=== PATIENT | female | born 1945 | race Caucasian/White ===

== ENCOUNTER 2017-04-12 16:51 | Emergency (ER) | payer OTHER ==
--- NOTE | 2017-04-12 17:14 | PDOC ---
History of Present Illness - General History Source: Patient Exam Limitations: No Limitations - History of Present Illness Initial Comments: 04/12/17 18:12 The patient is a 71 year old female, with significant past medical history diabetes, diabetic neuropathy, stroke with left sided residual hemiparesis, HTN , left bundle branch block, who presents today complaining of right foot cellulitis starting Sunday. The patient reports that her 100 lb rottweiler jumped on her right foot 2 weeks ago. She thought her 4th toe was broken and visited the orthopedist. Both an MRI and XRAY resulted negative for fractures. However, her foot has progressively become more swollen and red. While at the orthopedist today, the doctor was examining her foot and noticed an ulcer between her 4th and 5th toes. She was advised to visit the ER. Denies fever, chills, nausea, vomiting. Denies any chest pain, SOB. Allergies: none reported Surgical Hx: Social Hx: Tobacco use (1ppd). No alcohol use. PCP- Dr. Aldair Au ORthopedist: Dr. Inder Evans <Oliva Martin - Last Filed: 04/12/17 18:12> - General History Source: Patient Exam Limitations: No Limitations <Irina Marc - Last Filed: 04/14/17 10:34> - General Chief Complaint: Redness To Affected Area Stated Complaint: RIGHT FOOT CELLULITIS Time Seen by Provider: 04/12/17 16:53 Past History <Oliva Martin - Last Filed: 04/12/17 18:12> - Past Medical History CVA: Yes Diabetes: Yes Hypercholesterolemia: Yes - Psycho/Social/Smoking Cessation Hx Anxiety: No Suicidal Ideation: No Smoking History: Current every day smoker Have you smoked in the past 12 months: Yes Number of Cigarettes Smoked Daily: 20 'Breaking Loose' booklet given: 10/06/14 Hx Alcohol Use: No Drug/Substance Use Hx: No Substance Use Type: None Hx Substance Use Treatment: No <Irina Marc - Last Filed: 04/14/17 10:34> - Past Medical History Allergies/Adverse Reactions: Allergies Allergy/AdvReac Type Severity Reaction Status Date / Time No Known Allergies Allergy Verified 04/12/17 17:06 Home Medications: Ambulatory Orders Calcium Carbonate/Vitamin D3 [Calcium + Vitamin D Tablet] 1 each PO DAILY Clopidogrel Bisulfate [Plavix -] 75 mg PO DAILY 10/06/14 Difluprednate [Durezol] 1 drop OP DAILY 10/06/14 Glyburide 5 mg PO DAILY 10/06/14 Lisinopril [Prinivil -] 10 mg PO DAILY 10/06/14 Rosuvastatin Calcium [Crestor] 5 mg PO DAILY 10/06/14 Ubidecarenone [Co Q-10] 200 mg PO DAILY 10/06/14 Amoxicillin/Potassium Clav [Augmentin 875-125 Tablet] 1 each PO BID #14 tablet 04/12/17 Insulin NPH Human Isophane [Humulin N] 12 unit SQ HS 04/12/17 Insulin NPH Human Isophane [Humulin N] 24 unit SQ DAILY 04/12/17 Sulfamethoxazole/Trimethoprim [Bactrim Ds -] 1 tab PO BID #14 tablet 04/12/17 Review of Systems - Review of Systems Able to Perform ROS?: Yes Comments:: 04/12/17 18:13 GENERAL/CONSTITUTIONAL: No: fever, chills, weakness, loss of appetite. HEAD, EYES, EARS, NOSE AND THROAT: No: change in vision, ear pain, discharge, sore throat, throat swelling. CARDIOVASCULAR: No: chest pain, lightheadedness, palpitations, syncope RESPIRATORY: No: cough, shortness of breath, wheezing, hemoptysis, stridor. GASTROINTESTINAL: No: nausea, vomiting, abdominal cramping, diarrhea, rectal bleeding, constipation. GENITOURINARY: No: dysuria, hematuria, frequency, urgency, flank pain. MUSCULOSKELETAL: +right foot swelling and redness. No: back pain, neck pain, joint pain, muscle swelling or pain SKIN: No: lesions, pallor, rash or easy bruising. NEUROLOGIC: No: headache, vertigo, paresthesias, weakness ENDOCRINE: No: unexplained weight gain or loss HEMATOLOGIC/LYMPHATIC: No: anemia, easy bleeding, swelling nodes <Oliva Martin - Last Filed: 04/12/17 18:12> *Physical Exam - Vital Signs Last Vital Signs Temp Pulse Resp BP Pulse Ox 98.5 F 76 17 153/71 96 04/12/17 16:52 04/12/17 16:52 04/12/17 16:52 04/12/17 16:52 04/12/17 16:52 - Physical Exam Comments: 04/12/17 18:13 GENERAL: The patient is in no acute distress. HEAD: Normal with no signs of trauma. EYES: PERRLA, EOMI, sclera anicteric, conjunctiva clear. ENT: Ears normal, nares patent, oropharynx clear without exudates. Moist mucous membranes. NECK: Normal range of motion, supple without lymphadenopathy, JVD, or masses. LUNGS: Breath sounds equal, clear to auscultation bilaterally. No wheezes, and no crackles. HEART:Regular rate and rhythm, normal S1 and S2 without murmur, rub or gallop. ABDOMEN: Soft, nontender, normoactive bowel sounds. No guarding, no rebound. EXTREMITIES: +Right foot swelling, erythema, and ulcer between 4th and 5th toes. Normal range of motion. No clubbing or cyanosis. NEUROLOGICAL: Cranial nerves II through XII grossly intact. Normal speech. No focal neurological deficits. MUSCULOSKELETAL: Back nontender to palpation, no CVA tenderness SKIN: Warm, Dry, normal turgor, no rashes or lesions noted. <Oliva Matrin - Last Filed: 04/12/17 18:12> Heart Score/ECG Review #1 ECG reviewed & interpreted by me at: 17:45 04/12/17 17:45 SR, rate of 82 bpm Nml axis intervals nml - pr: 146ms, QRS: 120ms, QTc: 448ms No ST elevations LBBB (old)/ <Irina Marc - Last Filed: 04/14/17 10:34> ED Treatment Course - LABORATORY CBC & Chemistry Diagram: 04/12/17 18:10 04/12/17 18:10 <Irina Mrac - Last Filed: 04/14/17 10:34> Medical Decision Making - Medical Decision Making 04/12/17 17:14 A portion of this note was documented by scribe services under my direction. I have reviewed the details of the note, within reason, and agree with the documentation with the following case summary and management plan written by me. Nursing documentation reviewed and incorporated into medical decision making 04/12/17 17:41 This is a 71-year-old female with a history of hypertension, diabetes, hyperlipidemia, prior CVA with residual "limp" who presents emergency department upon the recommendation of her orthopedist due to ulcer of the right little toe and local cellulitis. Patient states possibly 2 weeks ago, her Rottweiler (100 pound dog) jumped on her and struck her foot. She was seen by her orthopedist who did an xray which was negative the patient states that her foot remained swollen and tender she was seen again by him, MRI ordered and performed Per patient, MRI demonstrated hammer toe of the 4th digit Pt continued to have pain She was seen again by her orthopedist When he examined her foot today, he noted an ulcer and according to the patient and her , he got sprayed with blood from the ulcer She was referred to the ER No fevers or chills She has diabetic neuropathy but does have pain No new trauma On examination: Right foot swollen There is skin break down between the 4th and 5th toes Foot is not hot DP difficult to palpate Plan: Labs Xray (pt states she already had one today) Abx Admit This patient is refusing admission I have explained that she will be signing out AMA 04/12/17 17:50 Pt signed out to Dr Dewey Pending labs Pt refused x ray <Irina Marc - Last Filed: 04/14/17 10:34> *DC/Admit/Observation/Transfer - Attestations Scribe Attestion: 04/12/17 18:13 Documentation prepared by MILA Guo, acting as medical lab scientist for Irina Marc MD. <Oliva Martin - Last Filed: 04/12/17 18:12> - Discharge Dispostion Admit: No <Irina Marc - Last Filed: 04/14/17 10:34> Diagnosis at time of Disposition: Diabetic foot ulcer Qualifiers: Diabetic foot ulcer location: toe Diabetes mellitus type: type 2 Laterality: right Non-pressure ulcer stage: limited to breakdown of skin Qualified Code(s): E11.621 - Type 2 diabetes mellitus with foot ulcer - Discharge Dispostion Disposition: HOME Condition at time of disposition: Good - Prescriptions Prescriptions: Amoxicillin/Potassium Clav [Augmentin 875-125 Tablet] 1 each PO BID #14 tablet Sulfamethoxazole/Trimethoprim [Bactrim Ds -] 1 tab PO BID #14 tablet - Referrals Referrals: Aldair Au [Primary Care Provider] - - Patient Instructions Printed Discharge Instructions: DI for Diabetic Foot Ulcer Additional Instructions: Return to the emergency department immediately with ANY new, persistent or worsening symptoms. It is very important that you take your antibiotics as prescribed If you develop any increasing redness, pain, fevers, chills or worsening symptoms it is important that you return to the emergency room immediately as he will need an admission to the hospital for infection. Also if your symptoms are not improved within 48 hours she should return to the emergency room Continue any medications as previously prescribed by your physician. You should follow up with your primary in 2-3 days for a reevaluation to make sure your foot is better.regarding today's emergency department visit. . Please make sure your doctor reviews the results of your emergency evaluation. Thank you for coming to the Emergency Department today for your care. It was a pleasure to see you today. Please note that your evaluation is INCOMPLETE until you follow-up with your doctor.
[2017-04-12 17:22] VITALS: BP 153/71; PULSE 76; TEMP 98.5; BMI 23.0
[2017-04-12] MEDS ORDERED: VANCOMYCIN 1,000 MG in DEXTROSE 5%-WATER - 250 ML IVPB ONE (17:46)
[2017-04-12] MEDS ORDERED: PIPERACILLIN/TAZOB 3.375 GM/50 ML PRE-DOCKED IVPB ONE (17:49)
[2017-04-12] MEDS ORDERED: VANCOMYCIN 1,000 MG VIAL (RESTRICTED TO ID ONLY) ONE (17:59)
[2017-04-12] MEDS ORDERED: PIPERACILLIN/TAZOBACTAM 3.375 GM VIAL IVPB ONE (17:59)
[2017-04-12 19:07] LABS: BASOPHIL 1.2 % (0-2.0); MCH 30.2 pg (25.7-33.7); MCHC 32.8 g/dl (32.0-36.0); MEAN CELL VOLUME 92.2 fl (80-96); MEAN PLT VOLUME 8.6 fl (7.5-11.1); NEUTROPHILS 71.2 % (42.8-82.8); PLATELET COUNT 247 K/MM3 (134-434); RDW 13.3 % (11.6-15.6); WHITE BLOOD COUNT 8.6 K/mm3 (4.0-10.8)
[2017-04-12 19:49] LABS: ALK PHOS 101 U/L (32-92); ANION GAP 8 (8-16); BILIRUBIN,TOTAL 0.3 mg/dl (0.2-1.0); CALCIUM 9.1 mg/dl (8.4-10.2); CO2 24 mmol/L (22-28); CREATININE 1.2 mg/dl (0.6-1.3); GLUCOSE,RANDOM 195 mg/dl (74-106); SGOT/AST 14 U/L (10-42); SGPT/ALT 10 U/L (10-40); TOT PROT 7.2 g/dl (6.4-8.3)
--- NOTE | 2017-04-12 19:53 | PDOC ---
History of Present Illness - General Chief Complaint: Redness To Affected Area Stated Complaint: RIGHT FOOT CELLULITIS Time Seen by Provider: 04/12/17 16:53 History Source: Patient Exam Limitations: No Limitations - History of Present Illness Initial Comments: 04/12/17 19:00 This is a 71-year-old female whose care was transferred to [place] from Dr. Marc at 1900 hrs. Patient is a insulin-dependent diabetic who comes in for evaluation of foot redness. Patient denies any fevers and she was afebrile here in the emergency room. Patient has a workup pending including CBC and chemistries. Patient was recently seen by her foot doctor and evaluated within the last few days. Patient's had x-rays at that time. Patient reports x-rays were unremarkable. 19:45 CBC is normal there is no left shift Patient was given and a bank and Zosyn here in the emergency room. Dr. Marc considered to admission of the patient if lab work was abnormal especially if patient had a white count or left shift. However patient does not want to stay, she is reliable and has follow-up. Patient's white count was normal there is no left shift, patient was afebrile her vitals were normal and the prescriptions were sent to her pharmacy to continue antibiotics. Patient understands that if she develops a fever or increasing pain and increasing redness swelling or any evidence of an increasing infection that she will return to the emergency room immediately Past History - Past Medical History Allergies/Adverse Reactions: Allergies Allergy/AdvReac Type Severity Reaction Status Date / Time No Known Allergies Allergy Verified 04/12/17 17:06 Home Medications: Ambulatory Orders Calcium Carbonate/Vitamin D3 [Calcium + Vitamin D Tablet] 1 each PO DAILY Clopidogrel Bisulfate [Plavix -] 75 mg PO DAILY 10/06/14 Difluprednate [Durezol] 1 drop OP DAILY 10/06/14 Glyburide 5 mg PO DAILY 10/06/14 Lisinopril [Prinivil -] 10 mg PO DAILY 10/06/14 Rosuvastatin Calcium [Crestor] 5 mg PO DAILY 10/06/14 Ubidecarenone [Co Q-10] 200 mg PO DAILY 10/06/14 Amoxicillin/Potassium Clav [Augmentin 875-125 Tablet] 1 each PO BID #14 tablet 04/12/17 Insulin NPH Human Isophane [Humulin N] 12 unit SQ HS 04/12/17 Insulin NPH Human Isophane [Humulin N] 24 unit SQ DAILY 04/12/17 Sulfamethoxazole/Trimethoprim [Bactrim Ds -] 1 tab PO BID #14 tablet 04/12/17 CVA: Yes Diabetes: Yes Hypercholesterolemia: Yes Other medical history: NEUROPATHY - Psycho/Social/Smoking Cessation Hx Anxiety: No Suicidal Ideation: No Smoking History: Current every day smoker Have you smoked in the past 12 months: Yes Number of Cigarettes Smoked Daily: 20 Information on smoking cessation initiated: Yes 'Breaking Loose' booklet given: 10/06/14 Hx Alcohol Use: No Drug/Substance Use Hx: No Substance Use Type: None Hx Substance Use Treatment: No *Physical Exam - Vital Signs Last Vital Signs Temp Pulse Resp BP Pulse Ox 98.5 F 76 17 153/71 96 04/12/17 16:52 04/12/17 16:52 04/12/17 16:52 04/12/17 16:52 04/12/17 16:52 ED Treatment Course - LABORATORY CBC & Chemistry Diagram: 04/12/17 18:10 04/12/17 18:10 - ADDITIONAL ORDERS Additional order review: 04/12/17 18:10 RBC 4.14 MCV 92.2 MCHC 32.8 RDW 13.3 MPV 8.6 Neutrophils % 71.2 Lymphocytes % 21.0 D Monocytes % 4.6 Eosinophils % 2.0 Basophils % 1.2 - Medications Given in the ED: ED Medications Discontinued Medications Generic Name Dose Route Start Last Admin Trade Name Michaelq PRN Reason Stop Dose Admin Vancomycin HCl 1,000 mg/ 250 mls @ 250 mls/hr 04/12/17 17:46 04/12/17 18:47 Dextrose IVPB 04/12/17 18:45 250 mls/hr ONCE ONE Administration Protocol Piperacillin Sod/Tazobactam Sod 3.375 gm 04/12/17 17:49 04/12/17 17:50 Zosyn 3.375gm Ivpb (Pre-Docked) IVPB 04/12/17 17:50 3.375 gm NOW ONE Administration Protocol *DC/Admit/Observation/Transfer Diagnosis at time of Disposition: Diabetic foot ulcer Qualifiers: Diabetic foot ulcer location: toe Diabetes mellitus type: type 2 Laterality: right Non-pressure ulcer stage: limited to breakdown of skin Qualified Code(s): E11.621 - Type 2 diabetes mellitus with foot ulcer; L97.511 - Non-pressure chronic ulcer of other part of right foot limited to breakdown of skin - Discharge Dispostion Disposition: HOME Condition at time of disposition: Good Admit: No - Prescriptions Prescriptions: Amoxicillin/Potassium Clav [Augmentin 875-125 Tablet] 1 each PO BID #14 tablet Sulfamethoxazole/Trimethoprim [Bactrim Ds -] 1 tab PO BID #14 tablet - Referrals Referrals: Aldair Au [Primary Care Provider] - - Patient Instructions Printed Discharge Instructions: DI for Diabetic Foot Ulcer Additional Instructions: Return to the emergency department immediately with ANY new, persistent or worsening symptoms. It is very important that you take your antibiotics as prescribed If you develop any increasing redness, pain, fevers, chills or worsening symptoms it is important that you return to the emergency room immediately as he will need an admission to the hospital for infection. Also if your symptoms are not improved within 48 hours she should return to the emergency room Continue any medications as previously prescribed by your physician. You should follow up with your primary in 2-3 days for a reevaluation to make sure your foot is better.regarding today's emergency department visit. . Please make sure your doctor reviews the results of your emergency evaluation. Thank you for coming to the Emergency Department today for your care. It was a pleasure to see you today. Please note that your evaluation is INCOMPLETE until you follow-up with your doctor. - Post Discharge Activity
[2017-04-12 19:59] LABS: COCKROFT - GAULT NT
--- NOTE | 2017-04-14 16:17 | EKG ---
Test Reason : Blood Pressure : / mmHG Vent. Rate : 082 BPM Atrial Rate : 082 BPM P-R Int : 146 ms QRS Dur : 120 ms QT Int : 384 ms P-R-T Axes : 027 001 092 degrees QTc Int : 448 ms POOR DATA QUALITY, INTERPRETATION MAY BE ADVERSELY AFFECTED SINUS RHYTHM WITH PREMATURE ATRIAL COMPLEXES SEPTAL INFARCT , AGE UNDETERMINED POSSIBLE LATERAL INFARCT , AGE UNDETERMINED ivcd of LBBB morphology NO PREVIOUS ECGS AVAILABLE Confirmed by MD MAKENNA, WENDIE ([id number]) on 04/14/2017 4:17:07 PM Referred By: DR OLIVER Confirmed By:WENDIE MENSAH MD
== END 2017-04-12 20:36 | disposition home or self-care (01) ==
LOC: FER 16:51
DX: E11.621 Type 2 diabetes mellitus with foot ulcer (principal); F17.210 Nicotine dependence, cigarettes, uncomplicated; Z86.73 Personal history of transient ischemic attack (TIA), and cerebral infarction without residual deficits; E78.00 Pure hypercholesterolemia, unspecified
CPT/HCPCS: 36415; 80053; 85025; 87040; 93005; 99281-25